=== PATIENT | male | born 1960 | race Caucasian/White ===

== ENCOUNTER 2017-04-10 19:42 | Inpatient (IN) | payer MEDICARE, MEDICAID, OTHER ==
[~2017-04-10] VITALS: Ht 193 cm; Wt 156.6 kg
[~2017-04-10 19:42] MED LIST: DHEA50CA3 PO; DICY1TAB26 PO; DOXY100T PO; GLIP10TA6 PO; L-CA500C2 PO; METF-324 PO; NOVORP2 SQ; PERC7.5T13 PO; SAW450CA2 PO; SULF-154 PO; TAB-TAB PO; VITA400D PO
[2017-04-10 20:12] VITALS: BP 161/81; PULSE 106; RESP 18; TEMP 102.2; O2SAT 96
--- NOTE | 2017-04-10 20:28 | PD ---
HPI Chief Complaint: Complaint Time Seen by Provider: 20:25 Travel History International Travel<30 days: No Contact w/Intl Traveler<30days: No Traveled to known affect area: No History of Present Illness HPI The patient is a 56-year-old male that complains of left testicular pain and swelling along with dysuria and frequency for 1 day. He also has noted a fever. He has a wound on his right foot at this is healing well. He is an insulin-dependent diabetic who also takes metformin and glipizide. He denies any syncopal or near syncopal spells. The patient is a Medicare a and B patient of The patient is a 56-year-old male, insulin-dependent diabetic who also takes metformin and glipizide who complains of fever, left testicular swelling and pain along with dysuria and frequency for 1 day. He denies any flank pain. He does have an infection on his right foot which is healing well. He is a Medicare a and B patient of . The patient is a 56-year-old male, insulin-dependent diabetic also takes glipizide and metformin who complains of chills, fever, left testicular swelling and pain for 1 day. He also has a healing infection on his right foot which is doing well. He does have some dysuria and frequency but denies any flank pain. He is a Medicare a and B patient of Dr. Shane. ailyn. ailyn. [facility] [place] Past Medical History Diabetes: Yes Diminished Hearing: No Immunizations Current: Yes Social History Alcohol Use: Yes (OCC) Tobacco Use: No Substance Use: No Allergies-Medications (Allergen,Severity, Reaction): Coded Allergies: No Known Allergies (Unverified , 04/10/17) Reported Meds & Prescriptions Reported Meds & Active Scripts Active Percocet 7.5-325 mg (Oxycodone-Acetaminophen 7.5-325 mg) 1 Tab 1 Tab PO Q4H PRN Vibramycin 100 mg (Doxycycline Hyclate) 100 Mg Cap 100 Mg PO BID Septra Ds (Trimethoprim/Sulfamethoxazole) Tab 1 Tab PO BID Bentyl (Dicyclomine HCl) 20 Mg Tab 20 Mg PO Q8 Reported L-Carnitine (Levocarnitine) 500 Mg Cap 500 Mg PO BID Dhea (Prasterone (DHEA)) 50 Mg Cap 50 Mg PO DAILY Saw Parachute (Saw Parachute (Serenoa Repens)) 450 Mg Cap 4 Tab PO BID Multivitamin (Multivitamins) 1 Tab Tab 1 Tab PO DAILY Vitamin D (Cholecalciferol) 400 Unit Benitez 0 PO DAILY UNKNOWN DOSE Novolin R (Insulin Human Regular) 100 Units/Ml Inj 0 SQ DIRECTED Glipizide 10 Mg Tab 10 Mg PO BID Glucophage (Metformin HCl) 1,000 Mg Tab 1,000 Mg PO BID Review of Systems Except as stated in HPI: all other systems reviewed are Neg Physical Exam Narrative GENERAL: The patient is obese, alert, oriented 3 in moderate apparent distress with his left testicular pain. His temperature is 102.2 and heart rate 106 and blood pressure 161/81 but the rest the vital signs are normal. SKIN: Focused skin assessment warm/dry. HEAD: Atraumatic. Normocephalic. EYES: Pupils equal and round. No scleral icterus. No injection or drainage. ENT: No nasal bleeding or discharge. Mucous membranes pink and moist. NECK: Trachea midline. No JVD. CARDIOVASCULAR: Regular rate and rhythm. No murmur appreciated. RESPIRATORY: No accessory muscle use. Clear to auscultation. Breath sounds equal bilaterally. GASTROINTESTINAL: Abdomen soft, non-tender, nondistended. Hepatic and splenic margins not palpable. MUSCULOSKELETAL: No obvious deformities. No clubbing. No cyanosis. No edema. NEUROLOGICAL: Awake and alert. No obvious cranial nerve deficits. Motor grossly within normal limits. Normal speech. PSYCHIATRIC: Appropriate mood and affect; insight and judgment normal. GENITOURINARY: Circumcised. Testes descended bilaterally without evidence of rotation. The left testicle shows swelling over twice the size as well as erythema of the scrotum locally and exquisite tenderness to touch. There is no abscess located in the scrotum. No urethral discharge. Data Data Last Documented VS Vital Signs Date Time Temp Pulse Resp B/P (MAP) Pulse Ox O2 Delivery O2 Flow Rate FiO2 04/10/17 21:45 103.0 106 20 139/76 (97) 95 04/10/17 20:39 Room Air Orders Orders Complete Blood Count With Diff (04/10/17 20:25) Basic Metabolic Panel (Bmp) (04/10/17 20:25) Urinalysis - C+S If Indicated (04/10/17 20:25) Lactic Acid (04/10/17 20:25) Blood Culture (04/10/17 20:33) Acetaminophen (Tylenol) (04/10/17 21:45) Sodium Chlor 0.9% 1000 Ml Inj (Ns 1000 M (04/10/17 21:45) Ondansetron Inj (Zofran Inj) (04/10/17 21:55) Admit To Inpatient (04/10/17 ) Vital Signs (Adult) Q4H (04/10/17 22:25) Activity Oob With Assistance (04/10/17 22:25) [employer] / Telemetry .CONTINUOUS (04/10/17 22:25) Diet Heart Healthy (04/11/17 Breakfast) Sodium Chlor 0.9% 1000 Ml Inj (Ns 1000 M (04/10/17 22:25) Sodium Chloride 0.9% Flush (Ns Flush) (04/10/17 22:30) Sodium Chloride 0.9% Flush (Ns Flush) (04/11/17 09:00) Basic Metabolic Panel (Bmp) (04/11/17 06:00) Complete Blood Count With Diff (04/11/17 06:00) Case Management Consult (04/10/17 22:25) Naloxone Inj (Narcan Inj) (04/10/17 22:30) Inpatient Certification (04/10/17 ) Us Testicles W Doppler (04/10/17 ) Labs Laboratory Tests Test 04/10/17 21:20 04/10/17 21:22 Urine Color YELLOW Urine Turbidity CLEAR Urine pH 5.5 Urine Specific [place] 1.015 Urine Protein NEG mg/dL Urine Glucose (UA) NEG mg/dL Urine Ketones NEG mg/dL Urine Occult Blood TRACE Urine Nitrite NEG Urine Bilirubin NEG Urine Leukocyte Esterase TRACE Urine WBC 3-5 /hpf Urine Amorphous Sediment SMALL Urine Hyaline Casts 0-2 /lpf Urine Mucus FEW /lpf Microscopic Urinalysis Comment CULT NOT INDICATED White Blood Count 23.9 TH/MM3 Red Blood Count 4.56 MIL/MM3 Hemoglobin 13.1 GM/DL Hematocrit 38.8 % Mean Corpuscular Volume 84.9 FL Mean Corpuscular Hemoglobin 28.7 PG Mean Corpuscular Hemoglobin Concent 33.8 % Red Cell Distribution Width 13.2 % Platelet Count 411 TH/MM3 Mean Platelet Volume 7.1 FL Neutrophils (%) (Auto) 91.7 % Lymphocytes (%) (Auto) 3.1 % Monocytes (%) (Auto) 1.7 % Eosinophils (%) (Auto) 0.2 % Basophils (%) (Auto) 3.3 % Neutrophils # (Auto) 22.0 TH/MM3 Lymphocytes # (Auto) 0.7 TH/MM3 Monocytes # (Auto) 0.4 TH/MM3 Eosinophils # (Auto) 0.0 TH/MM3 Basophils # (Auto) 0.8 TH/MM3 CBC Comment AUTO DIFF Blood Urea Nitrogen 20 MG/DL Creatinine 1.20 MG/DL Random Glucose 118 MG/DL Calcium Level 8.3 MG/DL Sodium Level 133 MEQ/L Potassium Level 4.2 MEQ/L Chloride Level 99 MEQ/L Carbon Dioxide Level 27.1 MEQ/L Anion Gap 7 MEQ/L Estimat Glomerular Filtration Rate 62 ML/MIN Lactic Acid Level 1.5 mmol/L MDM Medical Decision Making Medical Screen Exam Complete: Yes Emergency Medical Condition: Yes Medical Record Reviewed: Yes Interpretation(s) The CBC shows a white count of 23,900 with 92% neutrophils. The basic metabolic profile shows a sodium of 133, BUN 20, glucose 118 with calcium 8.3 but is otherwise normal. The lactic acid is normal. The urinalysis shows trace leukocyte esterase but is otherwise unremarkable and culture is not indicated. Differential Diagnosis Epididymitis, cellulitis right foot, sepsis, electrolyte disorder, diabetes mellitus poor control, urinary tract infection-cystitis, UTI pyelonephritis, scrotal abscess Narrative Course The patient appears to have epididymitis. An ultrasound is being ordered on the patient but the patient has no sign of torsion other than pain and swelling. He does not have any rotation, his left testicle hangs lower than his right and this appears to be an epididymitis. The patient does fit the criteria for sepsis. Sepsis Criteria SIRS Criteria (2 or more): Temp > 100.9 or < 96.8, Heart rate over 90, WBC > 43873, < 4000 or > 10% bands Sepsis Criteria (SIRS+source): Infect source susp/known Criteria Outcome: Meets sepsis criteria Diagnosis Primary Impression: Sepsis Additional Impression: Epididymitis, left Admitting Information Admitting Physician Requests: Admit Byron Hall MD Apr 10, 2017 20:28
[2017-04-10 20:39] VITALS: BP 147/65; PULSE 104; RESP 20; O2SAT 95
[2017-04-10 21:44] LABS: BASOPHIL # 0.8 TH/MM3 (0-0.2); BASOPHIL % 3.3 % (0.0-2.0); EOSINOPHIL % 0.2 % (0.0-4.0); HEMATOCRIT 38.8 % (39.0-51.0); LYMPH % 3.1 % (9.0-44.0); LYMPHOCYTE # 0.7 TH/MM3 (1.0-4.8); MEAN CELL VOLUME 84.9 FL (80.0-100.0); MEAN CORPUSCULAR HEMOGLOBIN 28.7 PG (27.0-34.0); MEAN CORPUSCULAR HGB CONC 33.8 % (32.0-36.0); MONO % 1.7 % (0.0-8.0); NEUT % 91.7 % (16.0-70.0); PLATELET COUNT 411 TH/MM3 (150-450); RED BLOOD COUNT 4.56 MIL/MM3 (4.50-5.90); RED CELL DISTRIBUTION WIDTH 13.2 % (11.6-17.2); WHITE BLOOD COUNT 23.9 TH/MM3 (4.0-11.0)
[2017-04-10 21:45] VITALS: BP 139/76; PULSE 106; RESP 20; TEMP 103; O2SAT 95
[2017-04-10 21:45] LABS: BLOOD, URINE TRACE (NEG); GLUCOSE,URINE NEG (NEG); KETONE, URINE NEG (NEG); NITRITE,URINE NEG (NEG); PH, URINE 5.5 (5.0-8.5)
[2017-04-10] MEDS ORDERED: SODIUM CHLOR 0.9% 1000 ML INJ 1,000 ML IV SCH (21:45)
[2017-04-10] MEDS ORDERED: ACETAMINOPHEN 500 MG CPLT PO ONE (21:45)
[2017-04-10 21:50] LABS: HEMO FLAGS AUTO DIFF
[2017-04-10] MEDS ORDERED: ONDANSETRON HCL 4 MG/2 ML VIAL ONE (21:55)
[2017-04-10 21:57] LABS: URINE COLOR YELLOW (YELLW/STRAW)
[2017-04-10 21:58] LABS: HYALINE CAST, URINE 0-2 /lpf (RARE); MUCUS URINE FEW /lpf (OCC)
[2017-04-10 21:59] LABS: COMMENT (UR) CULT NOT INDICATED; CULTURE IF INDICATED CULT NOT INDICATED
[2017-04-10 22:13] LABS: POTASSIUM 4.2 MEQ/L (3.5-5.1)
[2017-04-10 22:17] LABS: BICARBONATE 27.1 MEQ/L (21.0-32.0)
[2017-04-10] MEDS ORDERED: NALOXONE HCL 0.4 MG/ML AMP IV PRN (22:30)
[2017-04-10] MEDS ORDERED: SODIUM CHLORIDE 0.9% FLUSH 10 ML FLUSH IV FLUSH PRN (22:30)
[2017-04-10 22:41] VITALS: BP 138/70; PULSE 113; RESP 18; TEMP 99.6; O2SAT 94
[2017-04-10] MEDS ORDERED: VANCOMYCIN INJ 1,500 MG in SODIUM CHLORID 0.9% 500 ML INJ 500 ML IV ONE (22:45)
[2017-04-10 22:47] VITALS: BP 138/70; PULSE 116; RESP 20; O2SAT 93
[2017-04-10 22:50] LABS: PLATELET ESTIMATE SMEAR LOW (NORMAL); PLATELET MORPHOLOGY NORMAL (NORMAL); SCAN/DIFF AUTO DIFF CONFIRMED
--- NOTE | 2017-04-10 23:21 | RADRPT ---
EXAM DATE/TIME: 04/10/2017 22:53 [facility] COMPARISON: No previous studies available for comparison. INDICATIONS : Left testicle pain. MEDICAL HISTORY : Herniated disks. Diabetes. Testicle pain. SURGICAL HISTORY : None. ENCOUNTER: Initial ACUITY: 1 day PAIN SCORE: 6/10 LOCATION: Bilateral testicles. MEASUREMENTS: RIGHT TESTICLE: 4.2 x 2.3 x 4.2cm LEFT TESTICLE: 3.3 x 3.2 x 4.1cm FINDINGS: RIGHT TESTICLE: Homogeneous echotexture without concerning intra or extratesticular mass. There is an echogenic focu s with posterior shadowing in the inferior scrotum measuring 4 mm characteristic of calcification. Bl ood flow is symmetric and within normal limits. No varicocele. There is a small simple hydrocele. E pididymis is within normal limits. LEFT TESTICLE: Homogeneous echotexture without intra or extratesticular mass. Blood flow is symmetric and within no rmal limits. No varicocele. There is a small simple hydrocele. Epididymis is within normal limits. SCROTUM: Within normal limits. CONCLUSION: 1. No acute finding is identified to explain the left testicle pain. 2. Small bilateral hydroceles. Dat Jarvis MD on April 10, 2017 at 23:16 Board Certified Radiologist. This report was verified electronically.
[2017-04-10] MEDS: cefTRIAXone INJ 1,000 MG in SODIUM CHLORIDE 0.9% INJ 100 ML IV SCH (23:47)
[2017-04-10] MEDS: SODIUM CHLOR 0.9% 1000 ML INJ 1,000 ML IV SCH (23:47)
[2017-04-11] VITALS (9 sets, daily range): BP systolic 110–158; BP diastolic 51–76; PULSE 71–107; RESP 20; TEMP 98–100.6; O2SAT 95–96
[2017-04-11] MEDS: LEVOFLOXACIN 500 MG PREMIX INJ 100 ML IV SCH ×2 (00:32→23:08)
[2017-04-11] MEDS ORDERED: DEXTROSE 50% IN WATER 50 ML VIAL(D50) IV PRN ×3 (01:30→11:30)
[2017-04-11] MEDS ORDERED: GLUCAGON 1 MG/ML VIAL OTHER PRN ×3 (01:30→11:30)
[2017-04-11] MEDS ORDERED: INSULIN ASPART SUPPLEMENTAL SCALE SQ SCH ×2 (07:00)
[2017-04-11 07:08] LABS: AUTOMATED NEUTROPHIL # 32.3 TH/MM3 (1.8-7.7); BASOPHIL # 0.1 TH/MM3 (0-0.2); BASOPHIL % 0.2 % (0.0-2.0); HEMATOCRIT 34.7 % (39.0-51.0); LYMPH % 6.4 % (9.0-44.0); LYMPHOCYTE # 2.4 TH/MM3 (1.0-4.8); MEAN CELL VOLUME 86.3 FL (80.0-100.0); MEAN CORPUSCULAR HEMOGLOBIN 29.3 PG (27.0-34.0); MEAN CORPUSCULAR HGB CONC 33.9 % (32.0-36.0); MONO % 5.6 % (0.0-8.0); NEUT % 87.8 % (16.0-70.0); PLATELET COUNT 375 TH/MM3 (150-450); RED BLOOD COUNT 4.02 MIL/MM3 (4.50-5.90); RED CELL DISTRIBUTION WIDTH 13.5 % (11.6-17.2); WHITE BLOOD COUNT 36.9 TH/MM3 (4.0-11.0)
[2017-04-11 07:19] LABS: POTASSIUM 4.4 MEQ/L (3.5-5.1)
[2017-04-11 07:25] LABS: BICARBONATE 26.7 MEQ/L (21.0-32.0)
[2017-04-11 07:30] LABS: HEMO FLAGS AUTO DIFF
[2017-04-11 07:56] LABS: BANDS 5 % (0-6); EOSINOPHILS 1 % (0-4); POLYS (SEG NEUTROPHILS) 79 % (16-70); SCAN/DIFF FINAL DIFF MANUAL; WBC DIFF SAMPLE 100
[2017-04-11] MEDS ORDERED: INSU100V SQ (08:46)
[2017-04-11] MEDS: SODIUM CHLOR 0.9% 1000 ML INJ 1,000 ML IV SCH ×2 (08:53→18:13)
[2017-04-11] MEDS: SODIUM CHLORIDE 0.9% FLUSH 10 ML FLUSH IV FLUSH SCH ×2 (08:59→20:55)
[2017-04-11] MEDS: ACETAMINOPHEN/HYDROcodone 325 MG/7.5 MG TAB PO PRN ×3 (10:10→23:08)
--- NOTE | 2017-04-11 10:58 | HHI.HP ---
[facility] Jose Shane MD Admission Diagnosis sepsis, left epididymitis Diagnoses: (1) Epididymitis, left Diagnosis: Secondary (2) Sepsis Diagnosis: Principal Chief Complaint: testicular pain Travel History International Travel<30 Days: No Contact w/Intl Traveler <30 Da: No Traveled to Known Affected Are: No History of Present Illness 56-year-old white male being admitted for sepsis secondary to epididymitis. Patient was in his usual state of health until 2 days ago when he began experiencing some urinary straining. This was then followed the next day by left-sided testicular pain that would radiate to his left lower abdomen , that would worsen upon ambulation and weightbearing along with dysuria. Also noted that his scrotum started to swell. Denies any hematuria or pyuria. Patient felt subjective fever and chills along with some nausea and decided to proceed to the emergency room. Denies a sudden onset of symptoms, denies ever occurring in the past, denies being sexually active in the last 3-6 months due to substantial chronic back pain from herniated disks. Says he has uncontrolled diabetes with sugars in the 200s in the mornings for at least the last 30 days. Says that currently he feels a lot better since admission but says that his scrotum has actually worsened and swelling since yesterday. Review of Systems Except as stated in HPI: all other systems reviewed are Neg Past Family Social History Past Medical History Uncontrolled diabetes, herniated lumbar disks Past Surgical History Umbilical Hernia repair, back surgery Allergies: Coded Allergies: No Known Allergies (Unverified , 04/10/17) Family History "Bladder problems" in cousin and in daughters Social History Lives with son and daughter, denies ever smoking or any illicit drug use. Is both retired and disabled. Physical Exam Vital Signs Vital Signs Date Time Temp Pulse Resp B/P (MAP) Pulse Ox O2 Delivery O2 Flow Rate FiO2 04/11/17 08:00 99.0 71 20 119/61 (80) 95 04/11/17 04:00 99.5 90 20 110/74 (86) 96 04/11/17 02:00 95 8/30/17 01:05 98.0 91 20 136/64 (88) 95 04/11/17 00:27 95 18 127/51 (76) 96 04/10/17 22:47 116 20 138/70 (92) 93 Room Air 04/10/17 22:41 99.6 113 18 138/70 (92) 94 Room Air 04/10/17 21:45 103.0 106 20 139/76 (97) 95 04/10/17 20:39 106 20 04/10/17 20:39 104 20 147/65 (92) 95 Room Air 04/10/17 20:12 102.2 106 18 161/81 (107) 96 Physical Exam VS: Reviewed GENERAL: Only in acute distress while walking, no acute distress while laying in supine position SKIN: Warm and dry. EYES: No scleral icterus. No injection or drainage. ENT: No nasal bleeding or discharge. Mucous membranes pink and moist. CARDIOVASCULAR: Muffled heart sounds RESPIRATORY: No accessory muscle use. Clear to auscultation. Breath sounds equal bilaterally. GASTROINTESTINAL: obese abdomen, mild suprapubic TTP MUSCULOSKELETAL: Extremities without clubbing, cyanosis, or edema. gauze covering right foot. NEUROLOGICAL: Awake and alert. No facial droop nor slurred speech noted. UROLOGY: Barely palpable prostate (largely due to buttock tissue) that is nontender to palpation, I am unable to feel any unusual masses in the context of this limited exam. Left-sided moderately tender testicle with no signs of torsion, right testicle with minimal tenderness to palpation, no skin rashes or ulcers noted over genitals or over thigh folds PSYCHIATRIC: Appropriate mood and affect; insight and judgment normal. Laboratory Laboratory Tests Test 04/10/17 21:20 04/10/17 21:22 04/11/17 05:50 Urine Color YELLOW Urine Turbidity CLEAR Urine pH 5.5 Urine Specific [place] 1.015 Urine Protein NEG Urine Glucose (UA) NEG Urine Ketones NEG Urine Occult Blood TRACE Urine Nitrite NEG Urine Bilirubin NEG Urine Leukocyte Esterase TRACE Urine WBC 3-5 Urine Amorphous Sediment SMALL Urine Hyaline Casts 0-2 Urine Mucus FEW Microscopic Urinalysis Comment CULT NOT INDICATED White Blood Count 23.9 36.9 Red Blood Count 4.56 4.02 Hemoglobin 13.1 11.8 Hematocrit 38.8 34.7 Mean Corpuscular Volume 84.9 86.3 Mean Corpuscular Hemoglobin 28.7 29.3 Mean Corpuscular Hemoglobin Concent 33.8 33.9 Red Cell Distribution Width 13.2 13.5 Platelet Count 411 375 Mean Platelet Volume 7.1 7.6 Neutrophils (%) (Auto) 91.7 87.8 Lymphocytes (%) (Auto) 3.1 6.4 Monocytes (%) (Auto) 1.7 5.6 Eosinophils (%) (Auto) 0.2 0.0 Basophils (%) (Auto) 3.3 0.2 Neutrophils # (Auto) 22.0 32.3 Lymphocytes # (Auto) 0.7 2.4 Monocytes # (Auto) 0.4 2.1 Eosinophils # (Auto) 0.0 0.0 Basophils # (Auto) 0.8 0.1 CBC Comment AUTO DIFF AUTO DIFF Differential Comment AUTO DIFF CONFIRMED FINAL DIFF MANUAL Platelet Estimate LOW Platelet Morphology Comment NORMAL Red Cell Morphology Comment NORMAL Blood Urea Nitrogen 20 20 Creatinine 1.20 1.30 Random Glucose 118 162 Calcium Level 8.3 8.1 Sodium Level 133 136 Potassium Level 4.2 4.4 Chloride Level 99 101 Carbon Dioxide Level 27.1 26.7 Anion Gap 7 8 Estimat Glomerular Filtration Rate 62 57 Lactic Acid Level 1.5 Differential Total Cells Counted 100 Neutrophils % (Manual) 79 Band Neutrophils % 5 Lymphocytes % 10 Monocytes % 5 Eosinophils % 1 Neutrophils # (Manual) 31.0 Date/Time Source Procedure Growth Status 04/10/17 21:27 Blood Peripheral Aerobic Blood Culture Pending Received 04/10/17 21:27 Blood Peripheral Anaerobic Blood Culture Pending Received Result Diagram: 04/11/17 0550 04/11/17 0550 Imaging Last Impressions Scrotum Ultrasound 04/10/17 0000 Signed Impressions: Service Date/Time: Monday, April 10, 2017 22:53 - CONCLUSION: 1. No acute finding is identified to explain the left testicle pain. 2. Small bilateral hydroceles. MD Nicko Plascencia VTE Risk Assessment Nicko VTE Risk Assessment: Mod/High Risk (score >= 2) Caprini Risk Assessment Model Point Value = 1 Point Value = 2 Point Value = 3 Point Value = 5 Age 41-60 Minor surgery BMI > 25 kg/m2 Swollen legs Varicose veins or History of unexplained or recurrent spontaneous Oral contraceptives or hormone replacement Sepsis (< 1 month) Serious lung disease, including pneumonia (< 1 month) Abnormal pulmonary function Acute myocardial infarction Congestive heart failure (< 1 month) History of inflammatory bowel disease Medical patient at bed rest Age 61-74 Arthroscopic surgery Major open surgery (> 45 min) Laparoscopic surgery (> 45 min) Malignancy Confined to bed (> 72 hours) Immobilizing plaster cast Central venous access Age >= 75 History of VTE Family history of VTE Factor V Leiden Prothrombin [id number] Lupus anticoagulant Anticardiolipin antibodies Elevated serum homocysteine Heparin-induced thrombocytopenia Other congenital or acquired thrombophilia Stroke (< 1 month) Elective arthroplasty Hip, pelvis, or leg fracture Acute spinal cord injury (< 1 month) Prophylaxis Regimen Total Risk Factor Score Risk Level Prophylaxis Regimen 0-1 Low Early ambulation 2 Moderate Order ONE of the following: *Sequential Compression Device (SCD) *Heparin 5000 units SQ BID 3-4 Higher Order ONE of the following medications: *Heparin 5000 units SQ TID *Enoxaparin/Lovenox 40 mg SQ daily (WT < 150 kg, CrCl > 30 mL/min) *Enoxaparin/Lovenox 30 mg SQ daily (WT < 150 kg, CrCl > 10-29 mL/min) *Enoxaparin/Lovenox 30 mg SQ BID (WT < 150 kg, CrCl > 30 mL/min) AND/OR *Sequential Compression Device (SCD) 5 or more Highest Order ONE of the following medications: *Heparin 5000 units SQ TID (Preferred with Epidurals) *Enoxaparin/Lovenox 40 mg SQ daily (WT < 150 kg, CrCl > 30 mL/min) *Enoxaparin/Lovenox 30 mg SQ daily (WT < 150 kg, CrCl > 10-29 mL/min) *Enoxaparin/Lovenox 30 mg SQ BID (WT < 150 kg, CrCl > 30 mL/min) AND *Sequential Compression Device (SCD) Assessment and Plan Problem List: (1) Epididymitis, left ICD Code: N45.1 - Epididymitis Status: Acute (2) Sepsis ICD Code: A41.9 - Sepsis, unspecified organism Status: Acute (3) Type 2 diabetes mellitus with hyperglycemia ICD Code: E11.65 - Type 2 diabetes mellitus with hyperglycemia Assessment and Plan 56-year-old white male being admitted for sepsis secondary epididymitis. Clinically stable upon my intake and examination. Sepsis - Suspected mostly to epididymitis (most likely from enteric bacteria given age) , no evidence of prostatitis on exam, blood cultures pending, on broad-spectrum antibiotics and fluids. We'll order urine culture given persistent dysuria despite unremarkable urinalysis (knowing that pt is on abx currently). Despite worsening white count last 24 hours, is clinically improving and has been afebrile, will continue with antibiotics currently, vancomycin might be the first one to discontinue when scaling them back. f/u on AM labs. Epididymitis - broad-spectrum antibiotics, see above Scrotal edema - Per ultrasound no evidence of torsion, discussed with urology via phone, anticipate that this is coming from epididymitis and would likely get better over the course of a few days, elevate scrotum, apply ice, tx epididymitis as above Dysuria - We'll follow up on urine culture which I'm ordering, if still persistent we' ll obtain CT abdomen and pelvis DM - HDSS, Levemir, holding metformin for possible contrast studies chronic back pain - starting miralax, continue home meds Discussed case with urology, if worsening overall, we'll consult urology then Lovenox for DVT prophylaxis. Physician Certification 2 Midnight Certification Type: Admission for Inpatient Services Order for Inpatient Services The services are ordered in accordance with Medicare regulations or non- Medicare payer requirements, as applicable. In the case of services not specified as inpatient-only, they are appropriately provided as inpatient services in accordance with the 2-midnight benchmark. Estimated LOS (days): 3 3 days is the estimated time the patient will need to remain in the hospital, assuming treatment plan goals are met and no additional complications. Post-Hospital Plan: Home Alireza Castillo MD Apr 11, 2017 10:58
[2017-04-11] MEDS: POLYETHYLENE GLYCOL 17 GM PKG PO SCH (11:45)
[2017-04-11] MEDS: ENOXAPARIN SODIUM 40 MG/0.4 ML SYRINGE SQ SCH (12:03)
[2017-04-11] MEDS: INSULIN DETEMIR 100 UNITS/ML VIAL SQ SCH ×2 (12:07→20:54)
[2017-04-11] MEDS: INSULIN ASPART SUPPLEMENTAL SCALE SQ SCH ×2 (16:00→20:55)
[2017-04-11 18:03] LABS: CHLAMYDIA PCR NOT DETECTED (NOT DETECT); NEISSERIA PCR NOT DETECTED (NOT DETECT)
[2017-04-11] MEDS ORDERED: ACETAMINOPHEN 325 MG TAB PO ONE (20:15)
[2017-04-11] MEDS ORDERED: MINERAL OIL ENEMA 118 ML BTL RECTAL ONE (20:30)
[2017-04-12] VITALS: BP 114/54; PULSE 95; RESP 20; TEMP 99.1; O2SAT 95
[2017-04-12] MEDS: cefTRIAXone INJ 1,000 MG in SODIUM CHLORIDE 0.9% INJ 100 ML IV SCH (01:06)
[2017-04-12 04:00] VITALS: BP 118/53; PULSE 89; RESP 21; TEMP 99.4; O2SAT 96
[2017-04-12] MEDS: SODIUM CHLOR 0.9% 1000 ML INJ 1,000 ML IV SCH ×2 (05:50→14:25)
[2017-04-12 06:38] LABS: BASOPHIL # 0.1 TH/MM3 (0-0.2); BASOPHIL % 0.2 % (0.0-2.0); EOSINOPHIL % 0.1 % (0.0-4.0); HEMATOCRIT 32.3 % (39.0-51.0); LYMPH % 4.8 % (9.0-44.0); LYMPHOCYTE # 1.4 TH/MM3 (1.0-4.8); MEAN CELL VOLUME 84.4 FL (80.0-100.0); MEAN CORPUSCULAR HEMOGLOBIN 29.1 PG (27.0-34.0); MEAN CORPUSCULAR HGB CONC 34.5 % (32.0-36.0); MONO % 5.1 % (0.0-8.0); NEUT % 89.8 % (16.0-70.0); PLATELET COUNT 334 TH/MM3 (150-450); RED BLOOD COUNT 3.83 MIL/MM3 (4.50-5.90); RED CELL DISTRIBUTION WIDTH 13.2 % (11.6-17.2)
[2017-04-12 06:42] LABS: HEMO FLAGS DIFF FINAL
[2017-04-12 06:48] LABS: BICARBONATE 25.6 MEQ/L (21.0-32.0)
[2017-04-12 08:00] VITALS: BP 150/72; PULSE 88; RESP 22; TEMP 100.4; O2SAT 96
[2017-04-12] MEDS: ACETAMINOPHEN/HYDROcodone 325 MG/7.5 MG TAB PO PRN ×2 (08:32→20:55)
[2017-04-12] MEDS: SODIUM CHLORIDE 0.9% FLUSH 10 ML FLUSH IV FLUSH SCH ×2 (08:33→20:55)
[2017-04-12] MEDS: POLYETHYLENE GLYCOL 17 GM PKG PO SCH (08:33)
[2017-04-12] MEDS: INSULIN DETEMIR 100 UNITS/ML VIAL SQ SCH ×2 (08:35→20:59)
[2017-04-12] MEDS: INSULIN ASPART SUPPLEMENTAL SCALE SQ SCH ×3 (11:00→21:10)
[2017-04-12] MEDS: ENOXAPARIN SODIUM 40 MG/0.4 ML SYRINGE SQ SCH (11:59)
[2017-04-12 12:00] VITALS: BP 145/73; PULSE 83; RESP 20; TEMP 98.7; O2SAT 94
--- NOTE | 2017-04-12 12:31 | HHI.PR ---
Subjective Remarks Patient seen and examined today for follow-up on sepsis, epididymitis. Patient is lying in bed comfortable. States that yesterday when he tried to sit down in a chair he accidentally hit his scrotum and cause him excruciating pain. He also states that he has a wound on his right foot in which is being managed on outpatient wound care that his stated had some exudate coming out of the. Objective Vitals Vital Signs Date Time Temp Pulse Resp B/P (MAP) Pulse Ox O2 Delivery O2 Flow Rate FiO2 04/12/17 09:32 18 04/12/17 08:00 100.4 88 22 150/72 (98) 96 04/12/17 04:00 99.4 89 21 118/53 (74) 96 04/12/17 00:00 99.1 95 20 114/54 (74) 95 04/11/17 23:00 87 04/11/17 20:00 100.6 107 20 158/72 (100) 96 04/11/17 16:00 99.8 82 20 138/76 (96) 95 I/O 04/11/17 04/11/17 04/11/17 04/12/17 04/12/17 04/12/17 07:00 15:00 23:00 07:00 15:00 23:00 Intake Total 1295 ml 231 ml 1240 ml 1440 ml Output Total 0 ml Balance 1295 ml 231 ml 1240 ml 1440 ml Intake Oral 480 ml 240 ml 240 ml IV Total 815 ml 231 ml 1000 ml 1200 ml Output Urine Total 0 ml # Voids 5 2 # Bowel Movements 0 0 1 Result Diagram: 04/12/17 0604/12/17 0600 Objective Remarks GENERAL: Well-developed, well-nourished, in no acute distress. alert and orientated HEENT: Head is normocephalic without any lesions or masses noted. Facial features are symmetric. Eyes: Extraocular muscles are intact. Conjunctivae were clear. NECK: Supple without any masses. Trachea midline no deviation. No JVD, CARDIAC: Regular rhythm, regular rate. S1/S2 are heard. No murmurs gallops or rubs. LUNGS: Clear to auscultation bilaterally. No wheeze, rhonchi or rales. No use of accessory muscles on inspiration or expiration. ABDOMEN: Soft, nontender. Nondistended. Bowel sounds heard in all 4 quadrants. No organomegaly or masses. Negative rebound, negative guarding EXTREMITIES: No edema, pulses are equal bilaterally. No cyanosis or clubbing. Right foot does have dry ulceration noted with opening over the first metatarsal phalangeal joint without any signs of infection, exudate NEUROLOGY: Mood and affect appear appropriate. Cranial nerves II through XII grossly intact. Moving all extremities, speech is clear GENITOURINARY: Still some mild enlargement of the scrotum, left gonad greater than right Urinary Catheter: No Vascular Central Line Catheter: No A/P Assessment and Plan Sepsis Patient continues to meet criteria with febrile illness, tachycardia, leukocytosis, epididymitis Blood cultures have remained negative for 2 days Urine culture pending Patient on empirical antibiotics to include Rocephin and Levaquin Epididymitis Continue empirical antibiotics as listed above Scrotal elevation If no improvement will need to consult urology for recommendations Scrotal ultrasound was performed which did not indicate any acute finding. Small bilateral hydroceles Diabetes Accu-Cheks with sliding scale insulin Levemir 5 units twice daily Chronic back pain continue home meds DVT prevention Subcutaneous Lovenox Discharge Planning Discharge planning 24-48 hours if continues to improve. Shadi Hall Apr 12, 2017 12:31
[2017-04-12 16:00] VITALS: BP 143/67; PULSE 92; RESP 20; TEMP 99.4; O2SAT 100
[2017-04-12 20:00] VITALS: BP 132/59; PULSE 87; RESP 20; TEMP 99.5; O2SAT 93
[2017-04-12] MEDS: LEVOFLOXACIN 500 MG PREMIX INJ 100 ML IV SCH (23:42)
[2017-04-13] VITALS: BP 101/58; PULSE 70; RESP 20; TEMP 98.3; O2SAT 94
[2017-04-13] MEDS: SODIUM CHLOR 0.9% 1000 ML INJ 1,000 ML IV SCH ×3 (00:25→20:18)
[2017-04-13] MEDS: cefTRIAXone INJ 1,000 MG in SODIUM CHLORIDE 0.9% INJ 100 ML IV SCH (00:53)
[2017-04-13] MEDS: ACETAMINOPHEN/HYDROcodone 325 MG/7.5 MG TAB PO PRN ×3 (05:38→20:25)
[2017-04-13 06:46] LABS: AUTOMATED NEUTROPHIL # 17.5 TH/MM3 (1.8-7.7); BASOPHIL # 0.1 TH/MM3 (0-0.2); BASOPHIL % 0.3 % (0.0-2.0); EOSINOPHIL # 0.1 TH/MM3 (0-0.4); EOSINOPHIL % 0.5 % (0.0-4.0); HEMATOCRIT 32.2 % (39.0-51.0); LYMPH % 12.2 % (9.0-44.0); LYMPHOCYTE # 2.7 TH/MM3 (1.0-4.8); MEAN CELL VOLUME 84.9 FL (80.0-100.0); MEAN CORPUSCULAR HEMOGLOBIN 28.8 PG (27.0-34.0); MONO % 6.5 % (0.0-8.0); NEUT % 80.5 % (16.0-70.0); PLATELET COUNT 371 TH/MM3 (150-450); RED CELL DISTRIBUTION WIDTH 13.4 % (11.6-17.2); WHITE BLOOD COUNT 21.8 TH/MM3 (4.0-11.0)
[2017-04-13 06:58] LABS: HEMO FLAGS DIFF FINAL
[2017-04-13] MEDS: INSULIN ASPART SUPPLEMENTAL SCALE SQ SCH ×4 (07:00→20:24)
[2017-04-13 08:00] VITALS: BP 118/68; PULSE 69; RESP 20; TEMP 96.5; O2SAT 95
[2017-04-13] MEDS: SODIUM CHLORIDE 0.9% FLUSH 10 ML FLUSH IV FLUSH SCH ×2 (08:18→20:19)
[2017-04-13] MEDS: POLYETHYLENE GLYCOL 17 GM PKG PO SCH (08:18)
[2017-04-13] MEDS: INSULIN DETEMIR 100 UNITS/ML VIAL SQ SCH ×2 (08:19→20:24)
--- NOTE | 2017-04-13 09:50 | RADRPT ---
EXAM DATE/TIME: 04/13/2017 08:27 [facility] COMPARISON: US TESTICLE W/DOPPLER, April 10, 2017, 22:53. INDICATIONS : Increasing testicular pain. MEDICAL HISTORY : Herniated disks. Diabetes. Testicle pain. SURGICAL HISTORY : None. ENCOUNTER: Subsequent ACUITY: 4 - 6 days PAIN SCORE: 8/10 LOCATION: Bilateral testicle. MEASUREMENTS: RIGHT TESTICLE: 4.5 x 3.2 x 2.7cm LEFT TESTICLE: 4.5 x 3.6 x 3.4cm FINDINGS: RIGHT TESTICLE: Good flow without mass small simple hydrocele. LEFT TESTICLE: Increased vascularity when compared to the right. Epididymis is complex with small left hydrocele pr esent. SCROTUM: Within normal limits. CONCLUSION: Increased vascularity on the left the small complex hydrocele. There is no evidence for torsion. This is suspicious for an inflammatory process. Sharif Cline MD FACR on April 13, 2017 at 9:46 Board Certified Radiologist. This report was verified electronically.
--- NOTE | 2017-04-13 10:43 | HHI.PR ---
Subjective Remarks Patient seen and examined today for follow-up on scrotal cellulitis, left testicle pain. Patient states that he has not had any significant improvement. Still very painful with movement. Patient continues to be afebrile, Objective Vitals Vital Signs Date Time Temp Pulse Resp B/P (MAP) Pulse Ox O2 Delivery O2 Flow Rate FiO2 04/13/17 08:00 96.5 69 20 118/68 (85) 95 04/13/17 00:00 98.3 70 20 101/58 (72) 94 04/12/17 20:00 99.5 87 20 132/59 (83) 93 04/12/17 16:00 99.4 92 20 143/67 (92) 100 04/12/17 12:00 98.7 83 20 145/73 (97) 94 I/O 04/12/17 04/12/17 04/12/17 04/13/17 04/13/17 04/13/17 07:00 15:00 23:00 07:00 15:00 23:00 Intake Total 1440 ml 950 ml 500 ml 620 ml Balance 1440 ml 950 ml 500 ml 620 ml Intake Oral 240 ml 950 ml 420 ml IV Total 1200 ml 500 ml 200 ml # Voids 2 6 2 # Bowel Movements 1 1 0 Result Diagram: 04/13/17 0620 04/12/17 0600 Objective Remarks GENERAL: Well-developed, well-nourished, in no acute distress. alert and orientated HEENT: Head is normocephalic without any lesions or masses noted. Facial features are symmetric. Eyes: Extraocular muscles are intact. Conjunctivae were clear. NECK: Supple without any masses. Trachea midline no deviation. No JVD, CARDIAC: Regular rhythm, regular rate. S1/S2 are heard. No murmurs gallops or rubs. LUNGS: Clear to auscultation bilaterally. No wheeze, rhonchi or rales. No use of accessory muscles on inspiration or expiration. ABDOMEN: Soft, nontender. Nondistended. Bowel sounds heard in all 4 quadrants. No organomegaly or masses. Negative rebound, negative guarding EXTREMITIES: No edema, pulses are equal bilaterally. No cyanosis or clubbing. Right foot does have dry ulceration noted with opening over the first metatarsal phalangeal joint without any signs of infection, exudate NEUROLOGY: Mood and affect appear appropriate. Cranial nerves II through XII grossly intact. Moving all extremities, speech is clear GENITOURINARY: Patient still with mild erythema of the scrotum, left testicle feels rather firm and enlarged, no fluctuance was appreciated. No significant change since yesterday Urinary Catheter: No Vascular Central Line Catheter: No A/P Assessment and Plan Sepsis Patient continues to meet criteria with febrile illness, tachycardia, leukocytosis, epididymitis Blood cultures have remained negative for 2 days Urine culture no growth for 48 hours Leukocytosis is trending downward Zosyn and Levaquin Scrotal cellulitis/orchitis/Epididymitis Will change antibiotic to Zosyn for anaerobic coverage, continue Levaquin Scrotal elevation Consult urology since no improvement and mild worsening outpatient testicular enlargement, pain, cellulitis Scrotal ultrasound was performed which did not indicate any acute finding. Small bilateral hydroceles Will repeat scrotal ultrasound in light of patient's worsening clinically Diabetes Accu-Cheks with sliding scale insulin Levemir 5 units twice daily Chronic back pain continue home meds DVT prevention Subcutaneous Lovenox Discharge Planning Discharge planning 24-48 hours if continues to improve. Shadi Hall Apr 13, 2017 10:43
[2017-04-13] MEDS: PIPERACIL-TAZO 3.375 GM PREMIX 50 ML IV SCH ×3 (10:48→22:39)
[2017-04-13] MEDS: ENOXAPARIN SODIUM 40 MG/0.4 ML SYRINGE SQ SCH (11:44)
[2017-04-13 12:00] VITALS: BP 131/74; PULSE 65; RESP 20; TEMP 97.8; O2SAT 96
[2017-04-13 16:00] VITALS: BP 134/70; PULSE 61; RESP 20; TEMP 97; O2SAT 94
--- NOTE | 2017-04-13 16:41 | PD.CONS ---
[facility] Service Urology Consult Requested By Reason for Consult Scrotal pain and swelling Primary Care Physician Jose Shane MD Diagnosis: (1) Epididymitis, left ICD Code: N45.1 - Epididymitis (2) Sepsis ICD Code: A41.9 - Sepsis, unspecified organism (3) Type 2 diabetes mellitus with hyperglycemia ICD Code: E11.65 - Type 2 diabetes mellitus with hyperglycemia History of Present Illness 56 year-old gentleman with history of diabetes mellitus who was admitted with a 2 day history of scrotal pain and swelling. Patient reports that just prior to development of the symptoms he was having some difficulty voiding and was straining quite a bit. He denies a history of BPH or voiding issues in the past. He denies trauma to the genitalia. He denies similar symptoms of scrotal pain or swelling in the past as well. He reports that due to recent development of a diabetic foot wound that he is not been showering on a regular basis in order to keep the area dry. Preliminary evaluation included an elevated white cell count and a scrotal ultrasound that demonstrated good blood flow to both testicles without evidence of torsion. There was no evidence of testicular or epididymal masses. Small bilateral hydroceles were noted. Patient was started on antibiotics and analgesic support and subjectively felt better. The patient however has had increasing size of the scrotum does prompting a urology evaluation. Just prior to the urology evaluation, a repeat scrotal ultrasound was performed that demonstrated increased blood flow to the left testicle epididymis consistent with epididymoorchitis. Review of Systems Constitutional: DENIES: Fever, Chills Gastrointestinal: DENIES: Abdominal pain Genitourinary: COMPLAINS OF: Testicular Pain, Testicular Swelling, DENIES: Hematuria, Dysuria Musculoskeletal: COMPLAINS OF: Back pain (chronic) Except as stated in HPI: all other systems reviewed are Neg Past Family Social History Past Medical History Diabetes mellitus that has been poorly controlled Herniated lumbar disc disease Past Surgical History Status post lower back surgery Status post umbilical hernia repair Reported Medications Refer to EMR Allergies: Coded Allergies: No Known Allergies (Unverified , 04/10/17) Active Ordered Medications Refer to EMR Family History Reports bladder issues and his daughters as well as with his cousins Social History Denies tobacco, alcohol or illicit drug use Physical Exam Vital Signs Date Time Temp Pulse Resp B/P (MAP) Pulse Ox O2 Delivery O2 Flow Rate FiO2 04/13/17 12:00 97.8 65 20 131/74 (93) 96 04/13/17 08:00 96.5 69 20 118/68 (85) 95 04/13/17 00:00 98.3 70 20 101/58 (72) 94 04/12/17 20:00 99.5 87 20 132/59 (83) 93 Physical Exam GENERAL: This is a well-nourished, well-developed patient, in no apparent distress. SKIN: No rashes, ecchymoses or lesions. Cool and dry. HEAD: Atraumatic. Normocephalic. No temporal or scalp tenderness. EYES: Pupils equal round and reactive. Extraocular motions intact. No scleral icterus. No injection or drainage. ENT: Nose without bleeding, purulent drainage or septal hematoma. Throat without erythema, tonsillar hypertrophy or exudate. Uvula midline. Airway patent. NECK: Trachea midline. No JVD or lymphadenopathy. Supple, nontender, no meningeal signs. GASTROINTESTINAL: Abdomen soft, non-tender, nondistended. No hepato-splenomegaly , or palpable masses. No guarding. GENITOURINARY: Normal phallus, left testicle and epididymis markedly enlarged and tender to palpation. Overlying scrotal skin nonerythematous. No evidence of scrotal edema. No evidence of palpable abscess formation. Digital rectal exam not performed as it was preceded done during present admission and no abnormalities were detected. MUSCULOSKELETAL: Extremities adequately perfused. Right foot wound covered with gauze. NEUROLOGICAL: Awake and alert. Cranial nerves II through XII intact. Motor and sensory grossly within normal limits. Five out of 5 muscle strength in all muscle groups. Normal speech. Lab results reviewed: Yes Laboratory Tests Test 04/13/17 06:20 White Blood Count 21.8 Red Blood Count 3.80 Hemoglobin 10.9 Hematocrit 32.2 Mean Corpuscular Volume 84.9 Mean Corpuscular Hemoglobin 28.8 Mean Corpuscular Hemoglobin Concent 34.0 Red Cell Distribution Width 13.4 Platelet Count 371 Mean Platelet Volume 7.2 Neutrophils (%) (Auto) 80.5 Lymphocytes (%) (Auto) 12.2 Monocytes (%) (Auto) 6.5 Eosinophils (%) (Auto) 0.5 Basophils (%) (Auto) 0.3 Neutrophils # (Auto) 17.5 Lymphocytes # (Auto) 2.7 Monocytes # (Auto) 1.4 Eosinophils # (Auto) 0.1 Basophils # (Auto) 0.1 CBC Comment DIFF FINAL Differential Comment Date/Time Source Procedure Growth Status 04/10/17 21:27 Blood Peripheral Aerobic Blood Culture - Preliminary NO GROWTH IN 3 DAYS Resulted 04/10/17 21:27 Blood Peripheral Anaerobic Blood Culture - Preliminary NO GROWTH IN 3 DAYS Resulted 04/11/17 14:09 Urine Clean Catch Urine Culture - Final NO GROWTH IN 48 HOURS. Complete Result Diagram: 04/13/17 0620 04/12/17 0600 Personally reviewed images: Yes Imaging Last Impressions Scrotum Ultrasound 04/13/17 0000 Signed Impressions: Service Date/Time: Thursday, April 13, 2017 08:27 - CONCLUSION: Increased vascularity on the left the small complex hydrocele. There is no evidence for torsion. This is suspicious for an inflammatory process. Sharif Cline MD FACR Assessment and Plan Assessment and Plan UROLOGIC IMPRESSION: Resolving left epididymo-orchitis RECOMMENDATIONS: #1 Continue with present antibiotic therapy #2 May DC home on Levaquin 500mg po daily x10 days once wbc normalizes #3 Scrotal support #4 Ibuprofen 600mg po QID #5 Office f/u 2 to 3 weeks after hospital discharge [id number]. Velasquez Thomas MD Apr 13, 2017 16:41
[2017-04-13] MEDS: IBUPROFEN 600 MG TAB PO SCH (17:54)
[2017-04-13 20:48] VITALS: BP 130/68; PULSE 64; RESP 18; TEMP 98.1; O2SAT 94
[2017-04-14] MEDS: IBUPROFEN 600 MG TAB PO SCH ×2 (00:12→05:34)
[2017-04-14] MEDS: LEVOFLOXACIN 500 MG PREMIX INJ 100 ML IV SCH (00:12)
[2017-04-14 01:22] VITALS: BP 97/56; PULSE 72; RESP 18; TEMP 96.8; O2SAT 96
[2017-04-14] MEDS: SODIUM CHLOR 0.9% 1000 ML INJ 1,000 ML IV SCH (05:34)
[2017-04-14] MEDS: PIPERACIL-TAZO 3.375 GM PREMIX 50 ML IV SCH ×2 (05:34→10:09)
[2017-04-14 07:48] LABS: BASOPHIL # 0.1 TH/MM3 (0-0.2); BASOPHIL % 0.6 % (0.0-2.0); EOSINOPHIL # 0.2 TH/MM3 (0-0.4); EOSINOPHIL % 1.7 % (0.0-4.0); HEMATOCRIT 34.4 % (39.0-51.0); HEMO FLAGS DIFF FINAL; LYMPH % 19.3 % (9.0-44.0); LYMPHOCYTE # 2.2 TH/MM3 (1.0-4.8); MEAN CELL VOLUME 83.9 FL (80.0-100.0); MEAN CORPUSCULAR HEMOGLOBIN 28.3 PG (27.0-34.0); MEAN CORPUSCULAR HGB CONC 33.8 % (32.0-36.0); MONO % 7.4 % (0.0-8.0); PLATELET COUNT 366 TH/MM3 (150-450); RED CELL DISTRIBUTION WIDTH 12.8 % (11.6-17.2); WHITE BLOOD COUNT 11.3 TH/MM3 (4.0-11.0)
[2017-04-14 08:00] VITALS: BP 119/63; PULSE 62; RESP 20; TEMP 98.4; O2SAT 96
[2017-04-14] MEDS ORDERED: LEVO500T8 PO (08:55)
--- NOTE | 2017-04-14 08:55 | HHI.DCPOC ---
Discharge Care Plan Diagnosis: (1) Epididymitis, left (2) Sepsis Goals to Promote Your Health * To prevent worsening of your condition and complications * To maintain your health at the optimal level Directions to Meet Your Goals Take your medications as prescribed Follow your dietary instruction Follow activity as directed Keep your appointments as scheduled Take your immunizations and boosters as scheduled If your symptoms worsen call your PCP, if no PCP go to Urgent Care Center or Emergency Room Smoking is Dangerous to Your Health. Avoid second hand smoke Call the 24-hour hour crisis hotline for domestic abuse at Shadi Hall Apr 14, 2017 08:55
[2017-04-14] MEDS: POLYETHYLENE GLYCOL 17 GM PKG PO SCH (09:12)
--- NOTE | 2017-04-14 09:19 | HHI.DS ---
Discharge Summary Admission Date Apr 10, 2017 at 22:38 Discharge Date: Apr 14, 2017 Admitting Diagnosis sepsis, left epididymitis (1) Epididymitis, left ICD Code: N45.1 - Epididymitis Status: Acute (2) Sepsis ICD Code: A41.9 - Sepsis, unspecified organism Status: Acute (3) Type 2 diabetes mellitus with hyperglycemia ICD Code: E11.65 - Type 2 diabetes mellitus with hyperglycemia Procedures none Brief History - From Admission 56-year-old white male being admitted for sepsis secondary to epididymitis. Patient was in his usual state of health until 2 days ago when he began experiencing some urinary straining. This was then followed the next day by left-sided testicular pain that would radiate to his left lower abdomen , that would worsen upon ambulation and weightbearing along with dysuria. Also noted that his scrotum started to swell. Denies any hematuria or pyuria. Patient felt subjective fever and chills along with some nausea and decided to proceed to the emergency room. Denies a sudden onset of symptoms, denies ever occurring in the past, denies being sexually active in the last 3-6 months due to substantial chronic back pain from herniated disks. Says he has uncontrolled diabetes with sugars in the 200s in the mornings for at least the last 30 days. Says that currently he feels a lot better since admission but says that his scrotum has actually worsened and swelling since yesterday. CBC/BMP: 04/14/17 0700 04/12/17 0600 Significant Findings Laboratory Tests Test 04/11/17 14:09 04/12/17 06:00 04/13/17 06:20 04/14/17 07:00 White Blood Count 29.0 TH/MM3 (4.0-11.0) 21.8 TH/MM3 (4.0-11.0) 11.3 TH/MM3 (4.0-11.0) Red Blood Count 3.83 MIL/MM3 (4.50-5.90) 3.80 MIL/MM3 (4.50-5.90) 4.10 MIL/MM3 (4.50-5.90) Hemoglobin 11.1 GM/DL (13.0-17.0) 10.9 GM/DL (13.0-17.0) 11.6 GM/DL (13.0-17.0) Hematocrit 32.3 % (39.0-51.0) 32.2 % (39.0-51.0) 34.4 % (39.0-51.0) Neutrophils (%) (Auto) 89.8 % (16.0-70.0) 80.5 % (16.0-70.0) 71.0 % (16.0-70.0) Lymphocytes (%) (Auto) 4.8 % (9.0-44.0) Neutrophils # (Auto) 26.0 TH/MM3 (1.8-7.7) 17.5 TH/MM3 (1.8-7.7) 8.0 TH/MM3 (1.8-7.7) Monocytes # (Auto) 1.5 TH/MM3 (0-0.9) 1.4 TH/MM3 (0-0.9) Random Glucose 189 MG/DL (74-106) Calcium Level 8.3 MG/DL (8.5-10.1) Estimat Glomerular Filtration Rate 77 ML/MIN (>89) Imaging Last Impressions Scrotum Ultrasound 04/13/17 0000 Signed Impressions: Service Date/Time: Thursday, April 13, 2017 08:27 - CONCLUSION: Increased vascularity on the left the small complex hydrocele. There is no evidence for torsion. This is suspicious for an inflammatory process. Sharif Cline MD FACR PE at Discharge GENERAL: Well-developed, well-nourished, in no acute distress. alert and orientated HEENT: Head is normocephalic without any lesions or masses noted. Facial features are symmetric. Eyes: Extraocular muscles are intact. Conjunctivae were clear. NECK: Supple without any masses. Trachea midline no deviation. No JVD, CARDIAC: Regular rhythm, regular rate. S1/S2 are heard. No murmurs gallops or rubs. LUNGS: Clear to auscultation bilaterally. No wheeze, rhonchi or rales. No use of accessory muscles on inspiration or expiration. ABDOMEN: Soft, nontender. Nondistended. Bowel sounds heard in all 4 quadrants. No organomegaly or masses. Negative rebound, negative guarding EXTREMITIES: No edema, pulses are equal bilaterally. No cyanosis or clubbing. Right foot does have dry ulceration noted with opening over the first metatarsal phalangeal joint without any signs of infection, exudate NEUROLOGY: Mood and affect appear appropriate. Cranial nerves II through XII grossly intact. Moving all extremities, speech is clear GENITOURINARY: Patient still with mild erythema of the scrotum, left testicle feels rather firm and enlarged, no fluctuance was appreciated. No significant change since yesterday Pt update on day of discharge Patient doing better. Pain-free. No fever. Leukocytosis improved. Discharge plans discussed with patient who is agreeable Hospital Course Patient was seen and treated for sepsis (febrile, tachycardia, leukocytosis with epididymitis). Blood cultures remain negative. Patient's leukocytosis improved on IV antibiotics. The patient was changed to oral antibiotics at discharge. He was seen by urology and had scrotal ultrasound which is available in the record. Patient's diabetes was managed well and his home medications continued for back pain Pt Condition on Discharge: Good Discharge Disposition: Discharge Home Discharge Time: <= 30 minutes Discharge Instructions DIET: Follow Instructions for: As Tolerated, No Restrictions Activities you can perform: Regular-No Restrictions Follow up Referrals: PCP Follow-up - 1 Week Urology - 2 Weeks with Velasquez Thomas MD New Medications: Levofloxacin (Levofloxacin) 500 Mg Tablet 500 MG PO DAILY for Infection, #10 TAB 0 Refills Continued Medications: Cholecalciferol (Vitamin D) 400 Unit Benitez 0 PO DAILY, BENITEZ UNKNOWN DOSE Glipizide (Glipizide) 10 Mg Tab 10 MG PO BID Insulin Human Regular (Novolin R) 100 Units/Ml Inj 0 SQ DIRECTED, #10 ML Insulin Lispro Protamine-Lispro 75-25 Inj (Humalog Mix 75-25 Inj) 1,000 Unit/10 Ml Susp 20 UNITS SQ TIDPC for Blood Sugar Management, VIAL 0 Refills Levocarnitine (L-Carnitine) 500 Mg Cap 500 MG PO BID, CAP Metformin ER 24 HR (Metformin ER 24 HR) 1,000 Mg Tab 1000 MG PO BID Multiple Vitamin (Multivitamin) 1 Tab Tab 1 TAB PO DAILY, TAB Prasterone (Dhea) (Dhea) 50 Mg Cap 50 MG PO DAILY, CAP [place] ([place] Repens) ([place]) 450 Mg Cap 4 TAB PO BID Discontinued Medications: Dicyclomine Hcl (Bentyl) 20 Mg Tab 20 MG PO Q8, #20 TAB Doxycycline Hyclate 100 mg (Doxycycline Hyclate 100 mg) 100 Mg Cap 100 MG PO BID, #20 CAP Oxycodone-Acetaminophen 7.5-325 mg (Percocet 7.5-325 mg) 1 Tab 1 TAB PO Q4H PRN for PAIN, #30 TAB 0 Refills Sulfamethoxazole-Trimethoprim (Septra Ds) Tab 1 TAB PO BID, #20 TAB Mirta Lawson MD Apr 14, 2017 09:19
[2017-04-14] MEDS: SODIUM CHLORIDE 0.9% FLUSH 10 ML FLUSH IV FLUSH SCH (09:21)
[2017-04-14] MEDS: INSULIN ASPART SUPPLEMENTAL SCALE SQ SCH (09:27)
[2017-04-14] MEDS: INSULIN DETEMIR 100 UNITS/ML VIAL SQ SCH (09:28)
== END 2017-04-14 12:10 | disposition home or self-care (01) | DRG 872 ==
LOC: PHED 19:42 → PHEDA 22:38 → PH3A 04-11 00:42
PROVIDERS: ADMIT Hospitalist; ATTEND Hospitalist
DX: A41.9 Sepsis, unspecified organism (principal); E11.621 Type 2 diabetes mellitus with foot ulcer; E11.65 Type 2 diabetes mellitus with hyperglycemia; N45.3 Epididymo-orchitis; N50.89 Other specified disorders of the male genital organs; G89.29 Other chronic pain; M54.9 Dorsalgia, unspecified; M51.26 Other intervertebral disc displacement, lumbar region; R30.0 Dysuria; N43.3 Hydrocele, unspecified
CPT/HCPCS: 76870; 80048; 81001; 82948; 83605; 85007; 85025; 85027; 87040; 87086; 87491; 87591; 93975; J0696; J1650; J1815; J1956; J2405; J2543; J3370; J7030; J7040